=== PATIENT | male | born 1935 | race Caucasian/White ===

== ENCOUNTER 2019-08-12 20:04 | Inpatient (IN) | payer MEDICARE, SELFPAY ==
[~2019-08-12 20:04] MED LIST: Calcium Chloride 1 GM/10 ML Abboject SYRINGE ONE; Potassium Chloride 20 MEQ in Premix Bag 1 BAG IVPB SCH
[2019-08-12 20:28] LABS: Actual Bicarbonate (HCO3a) 16.5 mEq/L (22-28); Analyzer IN Cardio ER; Base Excess (BEa) -10.1 mEq/L (-2.0 to +3.0); Calcium, Ionized 1.01 mmol/L (1.12-1.30); Carboxyhemoglobin (COHb) 0.3 gm% (0.0-3.0); Hemoglobin (Hb) 12.4 g/dL (14.0-18.0); O2 Tension (PaO2) 361.8 mmHg (> 60.0); Potassium - ABG Lab 3.25 mmol/L (3.70-5.30); pH, Arterial 7.24 (7.35-7.45)
[2019-08-12 20:29] LABS: Hemoglobin 12.1 g/dL (14.0-18.0); Mean Corpuscular HGB CONC 33.9 g/dL (32.0-36.0); Mean Corpuscular Volume 85.5 fL (78.0-98.0); Mean Platelet Volume 9.2 fL (7.4-10.4); Platelet Count 214 thou/uL (130-400); RBC Distribution Width 12.4 % (11.5-14.5); Red Blood Cell (RBC) Count 4.16 mill/uL (4.70-6.10); White Blood Cell (WBC) Count 20.2 thou/uL (4.8-10.8)
[2019-08-12 20:29] LABS: Puncture Site LRA
[2019-08-12 20:35] LABS: INR-International Normal Ratio 1.5; PTT 45.1 SEC (22.9-36.1); Prothrombin Time 18.4 SEC (12.0-14.7)
[2019-08-12 20:41] LABS: Band 2 % (5-11); Lymphocytes 10 % (21-51); MDiff Complete? YES; Metamyelocyte 1 % (0-0); Monocytes 9 % (0-10); Neutrophil 77 % (42-75); Platelet Morphology Comment Appears Adequate
[2019-08-12] MEDS ORDERED: fentaNYL Citrate/PF 2,000 MCG in Sodium Chloride 0.9% 60 ML IV SCH (20:44)
[2019-08-12 20:52] LABS: ALT (SGPT) 108 U/L (8-55); AST (SGOT) 102 U/L (5-34); Albumin 3.3 g/dL (3.4-4.8); Alkaline Phosphatase 80 U/L (40-110); Anion Gap 21 mmol/L (10-20); BUN (Urea Nitrogen) 14 mg/dL (8.4-25.7); Bilirubin, Total 0.9 mg/dL (0.2-1.2); CK (CPK) 289 U/L (30-200); Calc. Creatinine Clearance 0 mL/min (70-130); Calcium 7.3 mg/dL (7.8-10.44); Carbon Dioxide 16 mmol/L (23-31); Chloride 101 mmol/L (98-107); Estimated GFR-MDRD 47; Globulin 2.9 g/dL (2.4-3.5); Glucose 366 mg/dL (83-110); Lipase 25 U/L (8-78); Potassium 3.2 mmol/L (3.5-5.1); Protein, Total 6.2 g/dL (5.8-8.1); Sodium 135 mmol/L (136-145)
--- NOTE | 2019-08-12 21:12 | CON ---
DATE OF CONSULTATION: 08/12/2019 REASON FOR CONSULTATION: Rmw-at-zvtrzidm cardiac arrest. HISTORY OF PRESENT ILLNESS: Mr. Kwon is an 84-year-old gentleman, in descent, who called 911 for chest pain earlier today. When EMS arrived, he had agonal breathing, he was very hypotensive and eventually went into PEA arrest and he was coded, eventually intubated and brought into the [facility]. The total length of resuscitation before he had recovery of spontaneous circulation was 45 minutes per EMS report. He has been unresponsive since. In the ER, he had to be placed on Levophed to keep his blood pressure up and a CT of the chest was done to rule out PE, which was negative for PE, but showed a gteyo-ei-gmummupg sized pneumothorax on the right chest, so a chest tube was placed. He remains unresponsive, on no sedation. No sedation was given to intubate either. PAST MEDICAL HISTORY: Unknown. SURGICAL HISTORY: Unknown. SOCIAL HISTORY: is currently driving from [place]. We will have more information once the arrives. OUTPATIENT MEDICATIONS: Unknown. FAMILY HISTORY: Unknown. ALLERGIES: UNKNOWN. REVIEW OF SYSTEMS: Unobtainable as the patient is intubated and unresponsive. PHYSICAL EXAMINATION: VITAL SIGNS: Blood pressure 148/62, heart rate 78, respiratory rate 18, and saturating 98% on 50% FiO2. GENERAL: Sedated, intubated. NECK: Supple. LUNGS: Have coarse breath sounds bilaterally. CARDIOVASCULAR: S1 and S2. No S3 or S4. There is a grade 2/6 systolic murmur at the right upper sternal border. ABDOMEN: Distended with reduced bowel sounds. EXTREMITIES: No edema. SKIN: Warm and dry. LABORATORY DATA: Laboratory work was reviewed from the [facility]. His white count was 14, hemoglobin of 11, hematocrit of 36, and platelet count of 191. Coags were reviewed. ABG was reviewed; his pH was 6.9 with CO2 of 69 and PO2 of 107. Chemistry showed a sodium of 137, potassium was 3.4, chloride of 98, carbon dioxide of 14, anion gap of 28, BUN of 15, creatinine of 1.78, GFR of 37, glucose was 465, calcium was 7.7, AST 76, ALT is 91, and alkaline phosphatase 76. CK-MB was 2.7. Troponin I was initially 0.04. BNP was 548. Albumin was 3.3. EKG initially showed right bundle branch block with about [address]-elevation in V1 and 0.[address]-elevation in V2 and lateral ST depressions. Repeat EKG showed no evidence of ST elevations, but the ST depressions in the lateral leads remained. IMAGING DATA: CT of the thorax showed no evidence of PE. There is a uyccw-kh-iuaicq sized right pneumothorax. There are bilateral pleural effusions and pulmonary infiltrates, presumably due to failure. Pneumonia is in the differential. Right lung is more involved than the left per final report. Chest x-ray showed similar findings. ASSESSMENT: 1. Pxy-jz-ocydjgie cardiac arrest. 2. Pulseless electrical activity arrest. 3. Pulmonary edema on imaging. 4. Prolonged resuscitation, 45 minutes total. 5. Acute hypoxic respiratory insufficiency. 6. Unresponsiveness. 7. Elevated sugars. 8. Elevated LFTs. 9. Elevated creatinine. 10. Metabolic acidosis. PLAN: 1. Currently, his EKG does not look like an acute ST elevation CT. It looks somewhat ischemic with the lateral depressions, certainly not an emergency to take him to the receiver/laborer. He is unstable and requiring high doses of pressors, he was on 35 mcg of Levophed. He received some bicarbonate and this actually made his blood pressure get better and we are able to start weaning off the Levophed. He is also very acidotic. At this time, I would try to stabilize him first. 2. We would trend out troponins. 3. We will consider heart catheterization if there is meaningful neurological recovery or if his troponins begin to rise precipitously. 4. Echocardiogram will be done. Thank you for letting us to participate in the care of your patient. We will follow. 45 minutes of critical care. Job ID: [id number] MARISOL
--- NOTE | 2019-08-12 21:40 | RAD ---
Exam: Chest one view HISTORY:Status post line placement Comparison: 08/12/2019 at 7:15 PM FINDINGS: Lines and tubes: Redemonstration of endotracheal and nasogastric tube. Redemonstration of a right-consuelo ed chest tube. Sidehole appears to be external to the pleural space. Small right-sided pneumothorax. Right-sided central venous catheter with the distal tip projecting over the superior ve na cava. Cardiac silhouette:Upper normal Aorta: Unremarkable Pulmonary vessels: Normal Costophrenic angles: Clear LUNGS: Bilateral right greater than left perihilar interstitial and alveolar opacities. Pneumothorax: Right-sided pneumothorax Osseous abnormalities: None IMPRESSION: Lines and tubes as above. Small right-sided pneumothorax. Results of study discussed with Dr. Davidson 08/12/2019 at 9:39 PM Code CR Transcribed Date/Time: 08/12/2019 9:58 PM
--- NOTE | 2019-08-12 21:56 | CT ---
Exam: Head CT without contrast HISTORY: Cardiac arrest. Resuscitative measures initiated. COMPARISON: none FINDINGS: Hemorrhage: No intraparenchymal hemorrhage or extra-axial hematoma. Brain parenchyma: Cortical baptiste-white matter differentiation is preserved. No mass effect or midline shift. Basilar cisterns are patent.Residual contrast from previous administration for CT angiogram of the chest is noted. No pathologic enhancement of the brain parenchyma. White matter hypodensities due to chronic small vessel ischemic change. Ventricular system: Ventricles and sulci are patent and symmetric. Calvarium: Intact. Sinuses and mastoid air cells: Mild mucosal thickening of the ethmoid air cells IMPRESSION: No acute intracranial process.
[2019-08-12] MEDS ORDERED: Aspirin 325 MG TAB ONE (21:57)
[2019-08-12] MEDS ORDERED: Enoxaparin Sodium 60 MG/0.6 ML SYRINGE ONE ×2 (21:57→22:58)
--- NOTE | 2019-08-12 22:28 | RAD ---
Exam: Chest one view HISTORY:Pneumothorax. Comparison: 08/12/2019 at 9:31 PM FINDINGS: Stable vascular catheter, nasogastric tube and endotracheal tube. Interval change in position of a ri ght-sided chest tube. There is a noted pneumothorax is not evident. Slightly improved aeration of the lung parenchyma. Subcutaneous emphysema in the right hemithorax. IMPRESSION: Interval replacement of a right-sided chest tube. Currently, there does not appear to be a definite p neumothorax on this supine projection. Improved aeration of the lung parenchyma. Transcribed Date/Time: 08/12/2019 10:37 PM
[2019-08-12] MEDS ORDERED: CCU Electrolyte Replacement 1 EACH IVPB SCH (23:29)
[2019-08-12] MEDS ORDERED: Acetaminophen 325 MG Suppository PR PRN (23:29)
[2019-08-12] MEDS ORDERED: Norepinephrine 8 MG in Dextrose 5% in Water 242 ML IVPB PRN (23:29)
[2019-08-12] MEDS ORDERED: Ventilator Sedation Protocol 1 EACH FS SCH (23:30)
[2019-08-12 23:44] LABS: ALT (SGPT) 108 U/L (8-55); AST (SGOT) 129 U/L (5-34); Albumin 3.3 g/dL (3.4-4.8); Alkaline Phosphatase 82 U/L (40-110); Anion Gap 25 mmol/L (10-20); BUN (Urea Nitrogen) 16 mg/dL (8.4-25.7); Bilirubin, Total 0.8 mg/dL (0.2-1.2); Calc. Creatinine Clearance 0 mL/min (70-130); Calcium 7.6 mg/dL (7.8-10.44); Carbon Dioxide 16 mmol/L (23-31); Chloride 101 mmol/L (98-107); Estimated GFR-MDRD 43; Glucose 419 mg/dL (83-110); Potassium 3.6 mmol/L (3.5-5.1); Protein, Total 6.3 g/dL (5.8-8.1); Sodium 138 mmol/L (136-145)
[2019-08-12] MEDS ORDERED: Lactated Ringer's 1,000 ML IV SCH (23:45)
[2019-08-12] MEDS ORDERED: Dextrose 5% in Water 1,000 ML IV PRN (23:57)
[2019-08-12] MEDS ORDERED: Dextrose 50% Abboject 50 ML SYRINGE SLOW IVP PRN (23:57)
[2019-08-13] MEDS ORDERED: Pantoprazole 40 MG VIAL IVP SCH (00:15)
[2019-08-13] MEDS ORDERED: Morphine 2 MG/ML SYRINGE SLOW IVP PRN (00:16)
[2019-08-13] MEDS ORDERED: fentaNYL Citrate/PF 2,000 MCG in Sodium Chloride 0.9% 60 ML IV SCH (00:16)
[2019-08-13] MEDS ORDERED: Propofol 1,000 MG/100 ML VIAL IV PRN (00:16)
[2019-08-13] MEDS ORDERED: DISCONTINUE PREVIOUS NARCOTIC PAIN MEDICATIONS AND BENZODIAZEPINES FS SCH (00:16)
[2019-08-13] MEDS ORDERED: Fentanyl BOLUS 250 ML IVPB PRN (00:16)
[2019-08-13] MEDS ORDERED: Lorazepam 2 MG/ML VIAL SLOW IVP PRN (00:16)
[2019-08-13] MEDS ORDERED: Propofol BOLUS 1,000 MG/100 ML VIAL IV PRN (00:16)
[2019-08-13] MEDS ORDERED: CCU ELECTROLYTE REPLACEMENT PROTOCOL FS PRN (00:17)
[2019-08-13] MEDS ORDERED: PHOS-NAK 1 PKT PACK PO PRN ×2 (00:17)
[2019-08-13] MEDS ORDERED: Potassium Chloride 40 MEQ in Sodium Chloride 0.9% 250 ML 250 ML IVPB PRN (00:17)
[2019-08-13] MEDS ORDERED: Magnesium 2 GM/50 ML 2 GM in Premix Bag 1 BAG IVPB PRN (00:17)
[2019-08-13] MEDS ORDERED: Potassium Phosphate 12 MMOL in Sodium Chloride 0.9% 250 ML 250 ML IV PRN (00:17)
[2019-08-13] MEDS ORDERED: Potassium Phosphate 9 MMOL in Sodium Chloride 0.9% 100 ML IVPB PRN (00:17)
[2019-08-13] MEDS ORDERED: Magnesium Oxide 400 MG TAB PO PRN ×2 (00:17)
[2019-08-13] MEDS ORDERED: Potassium Chloride 20 MEQ TAB PO PRN (00:17)
[2019-08-13] MEDS ORDERED: Potassium Phosphate 15 MMOL in Sodium Chloride 0.9% 250 ML 250 ML IV PRN (00:17)
[2019-08-13] MEDS ORDERED: Sterile Water 10 ML VIAL IVP PRN (00:28)
[2019-08-13] MEDS ORDERED: Sodium Chloride 0.9% 1,000 ML IV SCH (00:30)
[2019-08-13] MEDS ORDERED: Acetaminophen 1,000 MG in Premix Bag 1 BAG IVPB PRN (00:30)
[2019-08-13] MEDS ORDERED: Vecuronium 10 MG VIAL IV PRN (00:30)
[2019-08-13] MEDS ORDERED: Ondansetron ODT 4 MG TAB SL PRN (00:33)
[2019-08-13] MEDS ORDERED: Ondansetron PF 4 MG/2 ML Vial IVP PRN (00:33)
[2019-08-13] MEDS ORDERED: Sodium Bicarbonate 75 MEQ in Sodium Chloride 0.45% 1,000 ML IV SCH (01:00)
[2019-08-13 01:10] LABS: Phosphorus 4.7 mg/dL (2.3-4.7)
[2019-08-13 01:15] VITALS: BMI 22.6
[2019-08-13 01:37] LABS: Lactic Acid 15.2 mmol/L (0.5-2.2)
[2019-08-13] MEDS: cefTRIAXone\\ROCEPHIN 1 GM in Sodium Chloride 0.9% 100 ML IVPB SCH (02:00)
[2019-08-13] MEDS ORDERED: Heparin 25,000 units/D5W 500 ML ONE (08:48)
[2019-08-13] MEDS ORDERED: Enoxaparin Sodium 40 MG/0.4 ML SYRINGE SC SCH (09:00)
--- NOTE | 2019-08-13 11:41 | HP ---
CHIEF COMPLAINT: Uen-ed-gtcawfhb cardiac arrest. HISTORY OF PRESENT ILLNESS: The patient is an 84-year-old male, who was brought into the hospital with cardiac arrest. The patient's is at the bedside, who stated that the patient is just returned from [facility] about 2 weeks ago. 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 She is unclear if he had any chest pain or not. The patient's did state that he has been fighting with some congestion for the past couple of days and using daey-alj-dmvjyfc medications. At this time, the patient called 911; however, the patient then I believe lost consciousness, and when the EMS arrived, his pulse was very weak, and at this time, CPR was initiated. Per notes, the patient was resuscitated for about 20 to 30 minutes; however, it was also mentioned possible 45 minutes, and he had recovery of spontaneous circulation. The patient was then brought into the ER. Initial thoughts were possible cardiac arrest secondary to [place]. The patient's underlying rhythm was a PEA arrest per notes. He was seen by Cardiology. He did have some ST depressions. His troponins were mildly elevated. He then was found to have a small right-sided pneumothorax, for which a chest tube was inserted. He did have a CTA, which did not indicate any acute PE. He was started on Levophed, was hydrated and was admitted into the hospital. PAST MEDICAL HISTORY: Per , he has a history of hypertension, hypercholesterolemia, and benign prostate hyperplasia. PAST SURGICAL HISTORY: The denies. SOCIAL HISTORY: He does not smoke, does not drink, does not use any drugs. He is a full code. He lives with . FAMILY HISTORY: Unknown per . ALLERGIES: UNKNOWN. REVIEW OF SYSTEMS: Unable to obtain, the patient is intubated. PHYSICAL EXAMINATION: VITAL SIGNS: Temperature 98.8, respirations 18, heart rate 78, blood pressure 120/60. He is 98% on FiO2 of 35%. GENERAL: He is sedated and intubated. LUNGS: Lungs have some mild coarse breathing sounds bilaterally. CV: S1 and S2 present. He does have a 2/6 systolic murmur. ABDOMEN: Soft. Bowel sounds are present x2. EXTREMITIES: No edema. Pedal pulses are present x2. NEUROVASCULAR: Unable to obtain as the patient is sedated; however, his pupils are reactive. LABORATORY RESULTS: His white count was found to be 20,000 and his creatinine was I believe 1.78. His anion gap was 25 and his bicarb was 16. Potassium was 3.4. His BNP was 548. CK-MB was 2.7. Troponin initially was 0.04. His EKG indicated about [address]-elevation in V1 and 0.[address]-elevation in V2 and some depressions. He did have a CTA, which was negative for PE. There was bwonk-jx-hmekkh sized pneumothorax that was also noted. His CT brain was negative for any bleeds. ASSESSMENT AND PLAN: The patient is an 84-year-old male, who is pretty healthy, presents to the hospital with cardiac arrest. 1. Acute hypoxic respiratory failure. The patient currently is intubated. The patient underwent a pulseless electrical activity arrest. Unclear etiology at this moment, possible cardiac versus lung etiology. I will start him on broad-spectrum antibiotics. Also, he will be starting the cooling process. Cardiology has evaluated this patient. No need for urgent or emergent cardiac catheterization per notes. Also, we did a bedside echocardiogram, which did not indicate any tamponade. 2. Pulseless electric activity, unclear, possibly secondary to maybe hypoxia, it is unclear, the patient did complain of some congestion. We will also check a viral swab on this patient. 3. Elevated LFTs. This is probably secondary to his hypotension. We will continue to monitor. 4. Acute kidney injury. This is probably again secondary to his hypotension. I am hoping this is transient. We will monitor intake and output. 5. Anion gap metabolic acidosis. We will check a drug screen. We will start the patient on bicarb drip. If his bicarb drops, we will consult Nephrology. I have already spoken with them and continue to monitor the patient. 6. Deep venous thrombosis prophylaxis. We will put the patient on SCDs. Job ID: [id number]
[2019-08-13] MEDS: Sodium Bicarbonate 150 MEQ in Dextrose 5% in Water 1,000 ML IV SCH ×2 (13:00→16:52)
--- NOTE | 2019-08-13 14:08 | CON ---
DATE OF CONSULTATION: HISTORY OF PRESENT ILLNESS: Gildardo Kwon is an 84-year-old gentleman, who was admitted last night after he presented to the ER complaining of chest pain. 911 was called and lives in [place]. CPR en route, received 5 rounds of epi, 3 rounds of bicarb as 45-minute downtime. X-ray in [place] showed a right-sided pneumothorax. According to the ER doctor, he is intubated and started on Levophed. A small bore chest tube was placed. On arrival to [facility] ER, I was notified about the patient's issues appear to be a cardiac problem clearly. Cardiology was consulted. They were not planning to do any immediate intervention. He was transferred to the ICU and placed on a cooling blanket. I was not notified thereafter any of the events. PHYSICAL EXAMINATION: GENERAL/VITAL SIGNS this morning, he is on a cooling blanket. Pupils are equal. He is on Levophed with a blood pressure of 120/80, pulse 80, respiratory rate 20, temperature 98. CHEST: Decreased breath sounds without any wheezing. CARDIAC: Normal S1, S2. No gallops. ABDOMEN: No masses. His is apparently at the bedside. PAST MEDICAL HISTORY: Pertinent for hypertension, hyperlipidemia. HOME MEDICATIONS: Apparently given last night, unknown. ALLERGIES: UNKNOWN. 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 LABORATORY DATA: Shows blood sugar 196, creatinine 1.56, AST 128. BNP was 273. Chest x-ray was clear. A small bore chest tube in place. CT brain performed. No acute process was seen. His lactic acid was elevated. IMPRESSION: 1. Status post cardiac arrest with an initial event appears to be pulseless electrical activity, possibly ventricular fibrillation, ventricular tachycardia. 2. He is on hypothermia protocol. 3. Hypertension. 4. Azotemia. PLAN: We will continue supportive care until his hypothermia protocol has been withheld. We will discuss with family as they arrive of ongoing issues. Clearly concern is that he has sustained a hypoxic injury. We will make a decision once we were able to un-cool him. This is a 45-minute critical care time. Job ID: [id number]
--- NOTE | 2019-08-13 15:01 | RAD ---
CHEST 1 VIEW: COMPARISON: Prior day's study. HISTORY: Intubation. Respiratory distress. FINDINGS: Heart size and mediastinum are within normal limits. Endotracheal and NG tubes and right chest tube are again demonstrated. I do not see any definite pneumothorax. The overall appearance of the chest is stable. IMPRESSION: Stable exam. POS: [facility]
--- NOTE | 2019-08-13 15:37 | PDOC.HOSPP ---
- Subjective Encounter Date: 08/13/19 Encounter Time: 15:35 Subjective: intubated, unresponsive - Objective Vital Signs & Weight: Vital Signs (12 hours) Pulse BP 08/13/19 15:19 47 L 133/70 Weight Weight 128 lb 1.417 oz Most Recent Monitor Data Heart Rate from ECG 85 NIBP 138/74 NIBP BP-Mean 95 Respiration from ECG 42 SpO2 100 I&O: 08/12/19 08/13/19 08/14/19 06:59 06:59 06:59 Output Total 352 Balance -352 Result Diagrams: 08/12/19 20:17 08/12/19 23:06 Additional Labs: Accuchecks 08/13/19 08/13/19 12:08 08:05 POC Glucose 196 H 372 H Hospitalist ROS - Medication Medications: Active Medications Generic Name Dose Route Start Last Admin Trade Name Freq PRN Reason Stop Dose Admin Ceftriaxone Sodium 1 gm/ 100 mls @ 200 mls/hr 08/12/19 23:59 08/13/19 02:00 Sodium Chloride IVPB 100 mls Q24HR ELEANOR Administration Norepinephrine Bitartrate 8 mg 250 mls @ 0 mls/hr 08/12/19 23:29 08/13/19 01: 04 / Dextrose/Water IVPB 250 mls PRN PRN Administration To maintain MAP > 65 Protocol Titrate Propofol 1,000 mg 08/13/19 00:16 08/13/19 02:00 Diprivan IV 09/12/19 00:16 1,000 mg INF PRN Administration TO ACHIEVE GOAL RASS Protocol - Exam Neck: no JVD Heart: RRR, no murmur Heart - other findings: bradycardia Respiratory - other findings: Bilat BS, scattered rales. R chest franca Gastrointestinal: soft, non-tender, diminished bowl sounds Extremities: no edema Hosp A/P - Plan out of hospital arrest prolonged CPR R pneumothoraxpulmonary edema hypotension hypothermia plan1. vent support pressor support hypotherrmia protocol antibx pending cultures serial exams, lab
--- NOTE | 2019-08-13 15:38 | PDOC.PALCO ---
Palliative Care Consult - Consult Details Requesting Physician: Dr Hodges Reason for Consult: advance directives assistance, family support Family Members Present: None, daughter flying in from out of the country - Pertinent HPI 84 year old male who lives in [facility] and was at home and had a sudden onset of chest pain. His was not home, he called her and she advised him to call 911. EMS called and report that when the arrived he was non responsive and CPR/intubation was preformed en route. Eventual admission to CCU with cardiology consult. Patient non responsive. - Pertinent PMH HTN, HDL - Social History Smoking Status: Never smoker Smoking: no tobacco exposure Drug Use History: none Living Situation: independent, - Medications MAR Reviewed: Yes - Allergies Allergies/Adverse Reactions: Allergies Allergy/AdvReac Type Severity Reaction Status Date / Time No Allergy Information Allergy Unverified 08/12/19 20:44 Available - Subjective mechanical ventilation, unable to perform ROS. - ROS Non Response: due to endotracheal tube, due to mental status - Objective Vital Signs: Vital Signs - Most Recent Temp Pulse Resp BP Pulse Ox 92.3 F L 47 L 27 H 133/70 08/13/19 01:00 08/13/19 15:19 08/13/19 01:36 08/13/19 15:19 Palliative Performance Scale: 20 - Physical Exam Constitutional: encephalitic, ill appearing HEENT: moist MMs Deviation from normal: mechanical ventilation Cardiovascular: diminished peripheral pulses Deviation from normal: murmur Genitourinary: toledo catheter Musculoskeletal: no clubbing, pulses present Deviation from normal: sedated Deviation from normal: sedated - Problem List (1) Palliative care encounter Code(s): Z51.5 - ENCOUNTER FOR PALLIATIVE CARE Current Visit: Yes Status: Acute (2) Respiratory failure requiring intubation Code(s): J96.90 - RESPIRATORY FAILURE, UNSP, UNSP W HYPOXIA OR HYPERCAPNIA Current Visit: Yes Status: Acute - Plan/Recommendations Plan: Initiated contact for Palliative Care. Patient daughter en route from out of the country, his is not the biological mother of the daughter. Will support family as the hypothermia protocol has been carried out and continued conversations with hospitalist and lunchroom supervisor regarding plans for care are made. [40] minutes spent on this encounter with >50% of the time in counseling and coordination of care. Thank you for this very appropriate consult.
[2019-08-13 15:44] LABS: INR-International Normal Ratio 1.8; Prothrombin Time 20.4 SEC (12.0-14.7)
[2019-08-13 15:45] LABS: Hemoglobin 11.2 g/dL (14.0-18.0); Mean Corpuscular HGB CONC 34.3 g/dL (32.0-36.0); Mean Corpuscular Hemoglobin 28.8 pg (27.0-31.0); Mean Platelet Volume 9.7 fL (7.4-10.4); Platelet Count 162 thou/uL (130-400); RBC Distribution Width 12.5 % (11.5-14.5); Red Blood Cell (RBC) Count 3.88 mill/uL (4.70-6.10); White Blood Cell (WBC) Count 10.2 thou/uL (4.8-10.8)
[2019-08-13 15:49] LABS: ALT (SGPT) 98 U/L (8-55); AST (SGOT) 158 U/L (5-34); Albumin 3.1 g/dL (3.4-4.8); Alkaline Phosphatase 67 U/L (40-110); Anion Gap 27 mmol/L (10-20); BUN (Urea Nitrogen) 17 mg/dL (8.4-25.7); Bilirubin, Total 0.6 mg/dL (0.2-1.2); Calc. Creatinine Clearance 33 mL/min (70-130); Calcium 7.5 mg/dL (7.8-10.44); Carbon Dioxide 14 mmol/L (23-31); Chloride 102 mmol/L (98-107); Estimated GFR-MDRD 49; Globulin 2.7 g/dL (2.4-3.5); Glucose 347 mg/dL (83-110); Magnesium 2.1 mg/dL (1.6-2.6); Potassium 3.5 mmol/L (3.5-5.1); Protein, Total 5.8 g/dL (5.8-8.1); Sodium 139 mmol/L (136-145)
[2019-08-13 15:58] LABS: Troponin I 3.367 ng/mL (< 0.028)
[2019-08-13 16:01] LABS: PTT Greater than 250.0 SEC (22.9-36.1)
[2019-08-13 16:09] LABS: Band 12 % (5-11); Lymphocytes 13 % (21-51); MDiff Complete? YES; Monocytes 3 % (0-10); Neutrophil 72 % (42-75); RBC Morphology Normal
[2019-08-13 16:10] LABS: Anion Gap 16 mmol/L (10-20); BUN (Urea Nitrogen) 15 mg/dL (8.4-25.7); Calc. Creatinine Clearance 48 mL/min (70-130); Calcium 7.7 mg/dL (7.8-10.44); Carbon Dioxide 23 mmol/L (23-31); Chloride 104 mmol/L (98-107); Estimated GFR-MDRD 73; Glucose 128 mg/dL (83-110); Magnesium 2.1 mg/dL (1.6-2.6); Phosphorus 1.8 mg/dL (2.3-4.7); Potassium 2.9 mmol/L (3.5-5.1); Sodium 140 mmol/L (136-145); Troponin I 5.206 ng/mL (< 0.028)
[2019-08-13 16:31] LABS: Phosphorus 3.6 mg/dL (2.3-4.7)
[2019-08-13] MEDS: Potassium Chloride 40 MEQ in Premix Bag 1 BAG IVPB PRN (16:42)
[2019-08-13 16:44] LABS: Lactic Acid 14.8 mmol/L (0.5-2.2)
[2019-08-13] MEDS: Azithromycin 500 MG in Sodium Chloride 0.9% 250 ML 250 ML IVPB SCH (16:50)
[2019-08-13] MEDS: Aspirin 300 MG Suppository PR SCH (16:51)
[2019-08-13] MEDS: Pantoprazole 40 MG VIAL IVP SCH ×2 (16:51→21:22)
--- NOTE | 2019-08-13 17:04 | CON ---
DATE OF CONSULTATION: 08/13/2019 SERVICE: Nephrology. REASON FOR CONSULTATION: Renal insufficiency. HISTORY OF PRESENT ILLNESS: An 84-year-old male with known history of hypertension, hyperlipidemia, and BPH, admitted after out of hospital cardiac arrest. The patient reportedly returned from [facility] two weeks ago and has been having some upper respiratory symptoms and subsequently yesterday complained of some shortness of breath and ill feeling, following which 911 was called. It was reported that the patient had a thready pulse on arrival of the EMS and hence was started on CPR, which lasted about 20 to 30 minutes before return of spontaneous circulation. In the ER, the patient was also found to have right-sided pneumothorax requiring chest tube placement. He also had a CT angio to rule out PE as the underlying rhythm during the cardiac arrest was PEA arrest. The patient was noted to be hypotensive subsequently and was treated with IV fluid, Levophed, and was subsequently started on cooling protocol. Note that the above history was obtained from review of medical record as the patient currently is intubated and there is no relative at the bedside. PAST MEDICAL HISTORY: 1. Hypertension. 2. Hyperlipidemia. 3. BPH. PAST SURGICAL HISTORY: None. FAMILY HISTORY: Unknown due to at present, he is unresponsive at this time. 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 There is no history of smoking, alcohol, or recreational drug use. ALLERGIES: UNKNOWN. MEDICATIONS: Prior to hospital medications, unknown. REVIEW OF SYSTEMS: Could not be performed due to the patient's condition. PHYSICAL EXAMINATION: VITAL SIGNS: Current vitals showed heart rate of 85, temperature of 92.3, respiratory rate of 42, SpO2 of 100 on 25 FiO2, and blood pressure is 138/74. GENERAL: Sedated male patient in no obvious distress. Afebrile. The patient is actually hypothermic as he is undergoing cooling treatments (therapeutic hypothermia). HEENT: Normocephalic and atraumatic. ET tube and nasogastric tube are in place. NECK: No obvious masses or JVD appreciated. CARDIOVASCULAR: Regular rhythm and rate with normal. heart sounds one and two. RESPIRATORY: Fair air entry bilaterally. Ventilator transmitted breath sounds. GI: Soft, nondistended with hypoactive bowel sounds. UROGENITAL: Chaudhry catheter is in place, draining some urine. MUSCULOSKELETAL: Right chest tube noted. No obvious edema appreciated. Extremities are grossly normal with no obvious trauma or edema or edema. 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 DIAGNOSTIC DATA: CBC today showed WBC count of 10.2, hemoglobin of 11.2, and platelet of 162. On presentation on August 12, 2019, WBC count was 20.2, hemoglobin was 12.1, and platelet was 214. Coagulation panel showed PT 20.4 and INR 1.8. BMP today showed sodium 139, potassium 3.5, chloride 102, CO2 of 14, BUN 17, creatinine 1.4, glucose 347, calcium 7.51, total bilirubin 0.6, AST 158, ALT 98, alkaline phosphatase 67, total protein 5.8, albumin 3.1, and globulin 2.7. Lactic acid was 15.2. Initial troponin was 0.260. CT scan of the brain done on presentation showed no acute intracranial process. Initial chest x-ray done on presentation showed bilateral air I bilateral left perihilar interstitial and alveolar opacities, more on the right with right-sided pneumothorax. ASSESSMENT: 1. Renal insufficiency. Acute is unclear. On presentation, creatinine was 1.78 and has improved to a devan of 1.40 this morning. The prior history of chronic kidney disease is unknown at this time. It is possible this acute kidney injury related to circulatory shock and hypoperfusion. 2. Metabolic acidosis with lactic acidosis: Most likely due to circulatory shock. Underlining infective process may be contributory given the patient was having upper respiratory symptoms and congestion prior to pulseless electrical activity arrest. 3. Circulatory shock: Improved. The patient is currently off Levophed. 4. Out of hospital pulseless electrical activity arrest. Etiology is unclear. May be related to respiratory symptoms of viral pneumonic infection. 5. History of hypertension. 6. History of hyperlipidemia. 7. Melena. 8. Acute hypoxic respiratory failure: Status post intubation. PLAN: The patient currently is undergoing cooling (therapeutic hypothermia). We will continue sodium bicarbonate infusion for now and monitor urine output and intake. Hemodynamic support and ventilator support as needed to continue. Further treatment will depend largely on neurologic outcome. We will repeat renal function test in the morning. Other treatment as per Cardiology and septic cleaner. We will follow along with you. The patient remained critically ill with guarded prognosis. Job ID: [id number]
[2019-08-13] MEDS ORDERED: Propofol 1,000 MG/100 ML VIAL IV ONE (17:14)
[2019-08-13] MEDS ORDERED: DOPamine 400 MG/D5W 250 ML 250 ML ONE (17:15)
[2019-08-13] MEDS ORDERED: Atropine Sulfate 1 mg/10 ml Syringe ONE ×2 (17:15)
[2019-08-13 17:22] LABS: Actual Bicarbonate (HCO3a) 19.6 mEq/L (22-28); Base Excess (BEa) -1.4 mEq/L (-2.0 to +3.0); Calcium, Ionized 0.95 mmol/L (1.12-1.30); Carboxyhemoglobin (COHb) 0.5 gm% (0.0-3.0); Hemoglobin (Hb) 11.1 g/dL (14.0-18.0); O2 Tension (PaO2) 64.4 mmHg (> 60.0)
[2019-08-13 17:24] LABS: CO2 Tension 23.1 mmHg (35.0-45.0); Puncture Site RR; pH, Arterial 7.55 (7.35-7.45)
[2019-08-13 17:25] LABS: ALV-art Gradient 106.365 (0-20)
[2019-08-13] MEDS ORDERED: EPINEPHrine 1 MG/ML AMP ONE (17:26)
[2019-08-13 17:42] LABS: Hemoglobin 10.9 g/dL (14.0-18.0); Mean Corpuscular Volume 87.2 fL (78.0-98.0); Red Blood Cell (RBC) Count 3.74 mill/uL (4.70-6.10); White Blood Cell (WBC) Count 17.2 thou/uL (4.8-10.8)
[2019-08-13 17:43] LABS: Mean Corpuscular HGB CONC 33.5 g/dL (32.0-36.0); Mean Corpuscular Hemoglobin 29.2 pg (27.0-31.0); Mean Platelet Volume 9.8 fL (7.4-10.4); Platelet Count 206 thou/uL (130-400); RBC Distribution Width 12.5 % (11.5-14.5)
[2019-08-13 17:44] LABS: Band 13 % (5-11); Lymphocytes 1 % (21-51); MDiff Complete? YES; Monocytes 3 % (0-10); Neutrophil 83 % (42-75)
[2019-08-13] MEDS ORDERED: DOPamine 400 MG/D5W 250 ML 250 ML IVPB SCH (18:15)
--- NOTE | 2019-08-13 19:11 | PRG ---
DATE OF SERVICE: 08/13/2019 SUBJECTIVE: Mr. Kwon apparently developed significant bradycardia this afternoon, and I have to be in the critical care unit. I responded at the bedside. OBJECTIVE: VITAL SIGNS: His heart rate was in the 20s. HEENT: He had blown pupils. GENERAL: He was unresponsive. LUNGS: Clear. HEART: Regular rhythm. Bradycardic. He responded to atropine 0.5 mg. ABDOMEN: Soft. Dopamine was started, and he has a sinus rhythm with heart rate in the 60s. LABORATORY DATA: White count is 10.2 today, hemoglobin is 11.2. Electrolytes are unremarkable except for potassium of 2.9. His heparin had to be stopped because of bleeding out of his chest tube. IMPRESSION: Status post prolonged cardiopulmonary resuscitation with a pneumothorax secondary to rib fractures with chest tube placement. I suspect he is approaching brain , and his bradycardia probably is a result of that. We will continue supportive care for now. He will need to be neurologically re-assessed in the morning. CRITICAL CARE TIME: 30 minutes. Job ID: [id number]
--- NOTE | 2019-08-13 19:30 | CT ---
Exam: Head CT without contrast HISTORY: Change in neuro status. Patient administered a large dose of heparin COMPARISON: none FINDINGS: Hemorrhage: No intraparenchymal hemorrhage or extra-axial hematoma. Brain parenchyma: There appears to be loss of cortical baptiste-white matter differentiation with sulcal effacement suggesting diffuse cerebral edema. Ventricular system: Interval compression of the ventricular system, likely due to diffuse cerebral ed dagoberto. Calvarium: Intact. Sinuses and mastoid air cells: Partial opacification of the visualized paranasal sinuses IMPRESSION: Diffuse cerebral edema. Results study discussed with Jessika patient's nurse 08/13/2019 at 7:30 PM Code CR Transcribed Date/Time: 08/13/2019 8:20 PM
--- NOTE | 2019-08-13 20:10 | RAD ---
EXAM: ONE VIEW CHEST: 08/13/19 COMPARISON: 08/12/19 HISTORY: Respiratory distress. Ventilated patient. FINDINGS: Exam is on the taken list and submitted for official interpretation 08/13/19 at 8:07 p.m. FINDINGS: Stable lines and tubes. Stable opacification of the lung parenchyma. IMPRESSION: No significant interval change. POS: OFF
[2019-08-13] MEDS ORDERED: FLU VACC TS2019-20(65YR UP)/PF 180 MCG/0.5 ML SYRINGE IM ONE (21:00)
[2019-08-13] MEDS ORDERED: Prevnar 13-Val Conj/PF 0.5 ML SYRINGE IM ONE (21:00)
[2019-08-13] MEDS: HumaLOG 300 UNITS/3 ML VIAL SC PRN (21:05)
[2019-08-13] MEDS: Sodium Chloride 0.9% (PF) 10 ML VIAL FS PRN (21:23)
[2019-08-13 22:01] LABS: #Lymphocytes 1.1 thou/uL (1.20-3.40); #Monocytes 0.4 thou/uL (0.11-0.59); #Neutrophils 9.1 thou/uL (1.40-6.50); %Basophils 0.1 % (0.0-1.0); %Eosinophils 0.1 % (0.0-10.0); %Monocytes 3.7 % (0.0-10.0); %Neutrophils 86.2 % (42.0-75.0); Hemoglobin 9.7 g/dL (14.0-18.0); Mean Corpuscular HGB CONC 33.6 g/dL (32.0-36.0); Mean Corpuscular Hemoglobin 28.3 pg (27.0-31.0); Mean Corpuscular Volume 84.3 fL (78.0-98.0); Mean Platelet Volume 9.7 fL (7.4-10.4); Platelet Count 167 thou/uL (130-400); RBC Distribution Width 12.4 % (11.5-14.5); White Blood Cell (WBC) Count 10.5 thou/uL (4.8-10.8)
[2019-08-13 22:05] LABS: INR-International Normal Ratio 1.6
[2019-08-13 22:06] LABS: PTT 96.3 SEC (22.9-36.1)
[2019-08-13 22:13] LABS: ALT (SGPT) 78 U/L (8-55); AST (SGOT) 189 U/L (5-34); Bilirubin, Total 0.6 mg/dL (0.2-1.2)
[2019-08-13 22:14] LABS: Anion Gap 14 mmol/L (10-20); BUN (Urea Nitrogen) 16 mg/dL (8.4-25.7); Calc. Creatinine Clearance 47 mL/min (70-130); Calcium 7.1 mg/dL (7.8-10.44); Carbon Dioxide 24 mmol/L (23-31); Chloride 104 mmol/L (98-107); Estimated GFR-MDRD 72; Glucose 179 mg/dL (83-110); Magnesium 1.9 mg/dL (1.6-2.6); Phosphorus 2.1 mg/dL (2.3-4.7); Sodium 139 mmol/L (136-145)
[2019-08-13 22:17] LABS: Critical Call Chem Troponin I RESULT DECREASING
[2019-08-13 22:20] LABS: Potassium 2.8 mmol/L (3.5-5.1)
[2019-08-13 22:31] LABS: Bilirubin Negative (Negative); Blood, Urine Large (Negative); Glucose, Urine (Dipstick) Negative (Negative); Leukocyte Small (Negative); Nitrite Negative (Negative); Protein, Urine (Dipstick) 100 mg/dL (Neg-Trace); Urobilinogen 0.2 mg/dL (Less than 2)
[2019-08-13 22:38] LABS: Clarity Hazy (Clear)
[2019-08-13 22:39] LABS: Amphetamine Not Detected (NotDetected); Barbiturates Screen Not Detected (NotDetected); Benzodiazepine Screen Detected (NotDetected); Cocaine Metabolite Screen Not Detected (NotDetected); Medtox Control Line Valid? VALID (VALID); Medtox Reader # READER 4; Methadone Not Detected (NotDetected); Methamphetamine Not Detected (NotDetected); Opiate Screen Not Detected (NotDetected); Oxycodone Screen Not Detected (NotDetected); Phencyclidine (PCP) Not Detected (NotDetected); THC/Cannabinoid Screen Not Detected (NotDetected); Tricyclic Screen Not Detected (NotDetected)
[2019-08-13 22:43] LABS: RBC/HPF Greater than 50 HPF (0-3)
[2019-08-13 22:44] LABS: Bacteria/HPF Rare-Few HPF (None Seen); Squamous Epithelial 0-3 HPF (0-3)
[2019-08-13 22:45] LABS: Urine Culture Reflex Yes Yes
[2019-08-14] MEDS: cefTRIAXone\\ROCEPHIN 1 GM in Sodium Chloride 0.9% 100 ML IVPB SCH (00:04)
[2019-08-14] MEDS: Azithromycin 500 MG in Sodium Chloride 0.9% 250 ML 250 ML IVPB SCH (00:04)
[2019-08-14] MEDS: HumaLOG 300 UNITS/3 ML VIAL SC PRN ×2 (02:00→05:03)
[2019-08-14] MEDS: Sodium Bicarbonate 150 MEQ in Dextrose 5% in Water 1,000 ML IV SCH (05:33)
[2019-08-14 06:47] LABS: #Lymphocytes 0.9 thou/uL (1.20-3.40); #Monocytes 0.4 thou/uL (0.11-0.59); #Neutrophils 7.3 thou/uL (1.40-6.50); %Basophils 0.1 % (0.0-1.0); %Lymphocytes 10.1 % (21.0-51.0); %Monocytes 4.2 % (0.0-10.0); %Neutrophils 85.6 % (42.0-75.0); Hemoglobin 8.9 g/dL (14.0-18.0); Mean Corpuscular HGB CONC 33.2 g/dL (32.0-36.0); Mean Corpuscular Hemoglobin 28.2 pg (27.0-31.0); Mean Corpuscular Volume 84.7 fL (78.0-98.0); Mean Platelet Volume 10.2 fL (7.4-10.4); Platelet Count 171 thou/uL (130-400); RBC Distribution Width 12.6 % (11.5-14.5); Red Blood Cell (RBC) Count 3.17 mill/uL (4.70-6.10); White Blood Cell (WBC) Count 8.6 thou/uL (4.8-10.8)
[2019-08-14 07:06] LABS: ALT (SGPT) 66 U/L (8-55); AST (SGOT) 134 U/L (5-34); Albumin 2.6 g/dL (3.4-4.8); Alkaline Phosphatase 58 U/L (40-110); Anion Gap 13 mmol/L (10-20); BUN (Urea Nitrogen) 16 mg/dL (8.4-25.7); Bilirubin, Total 0.4 mg/dL (0.2-1.2); Calc. Creatinine Clearance 39 mL/min (70-130); Carbon Dioxide 27 mmol/L (23-31); Chloride 109 mmol/L (98-107); Estimated GFR-MDRD 60; Globulin 2.6 g/dL (2.4-3.5); Glucose 161 mg/dL (83-110); Potassium 3.5 mmol/L (3.5-5.1); Protein, Total 5.2 g/dL (5.8-8.1); Sodium 145 mmol/L (136-145)
[2019-08-14 07:20] LABS: Actual Bicarbonate (HCO3a) 25.6 mEq/L (22-28); Base Excess (BEa) 4.9 mEq/L (-2.0 to +3.0); Calcium, Ionized 0.92 mmol/L (1.12-1.30); Carboxyhemoglobin (COHb) 1.1 gm% (0.0-3.0); Hemoglobin (Hb) 9.3 g/dL (14.0-18.0); O2 Tension (PaO2) 63.4 mmHg (> 60.0); Potassium - ABG Lab 3.28 mmol/L (3.70-5.30)
[2019-08-14] MEDS: Potassium Chloride 40 MEQ in Premix Bag 1 BAG IVPB PRN (08:13)
[2019-08-14] MEDS: Pantoprazole 40 MG VIAL IVP SCH ×2 (08:13→22:03)
[2019-08-14] MEDS: Aspirin 300 MG Suppository PR SCH (08:14)
--- NOTE | 2019-08-14 08:15 | RAD ---
SINGLE VIEW OF THE CHEST: COMPARISON: 08/13/2019. HISTORY: Respiratory failure. Ventilated patient. FINDINGS: A single view of the chest shows a normal-size cardiomediastinal silhouette. The lines and tubes are unchanged in position. Airspace opacity is seen in the right lung which may represent pulmonary con tusion or infiltrate adjacent to the chest tube. There is a small right-sided pneumothorax. There i s a small left pleural effusion. IMPRESSION: 1. Right-sided chest tube with possible contusion or infiltrate in the right lung. 2. Small right pneumothorax. 3. Small left pleural effusion. CODE T
[2019-08-14 08:19] LABS: Puncture Site LRA; pH, Arterial 7.63 (7.35-7.45)
[2019-08-14] MEDS ORDERED: DC Sedation Protocol FS ONE (08:24)
[2019-08-14] MEDS: Sodium Chloride 0.9% 1,000 ML IV SCH ×2 (08:27→15:14)
--- NOTE | 2019-08-14 08:53 | PRG ---
DATE OF SERVICE: 08/14/2019 SUBJECTIVE: Gildardo Kwon is an 84-year-old gentleman, intubated on the vent, off all sedation, off the hypothermia protocol. He is status post cardiac arrest. OBJECTIVE: VITAL SIGNS: His pulse is 84, blood pressure is 109/54, saturations 93%, respiratory rate 10. HEENT: Pupils are dilated at about 4 mm, unresponsive neurologically. CHEST: Decreased breath sounds, no wheezing. CARDIAC: Normal S1, S2. No gallops. ABDOMEN: No masses. LABORATORY DATA: X-ray shows right-sided pneumothorax, otherwise no acute infiltrates. White count 8000, H and H , platelet count 171. PO2 of 63, pCO2 of 25, pH of 7.63. Renal function shows creatinine is 1.16. His bicarb is 27, potassium 3.5 . Status post cardiopulmonary arrest and severe anoxic injury. Baseline echocardiogram done by Cardiology shows EF is 20%. Global hypokinesis. IMPRESSION: Status post cardiac arrest, congestive heart failure, anoxic injury, azotemia. PLAN: EEG is being ordered. Discuss with family as they arrive. Prognosis is guarded. One-half hour of critical time. Job ID: [id number]
[2019-08-14] MEDS ORDERED: Enoxaparin Sodium 30 MG/0.3 ML SYRINGE SC SCH (09:00)
--- NOTE | 2019-08-14 11:33 | PRG ---
DATE OF SERVICE: 08/14/2019 SERVICE: Nephrology. SUBJECTIVE: An 84-year-old male, admitted after out of hospital cardiac arrest, status post therapeutic hypothermia. Nephrology is following patient for acute kidney injury management. The patient since rewarming has been unresponsive both to noxious stimulus and verbal stimulus. OBJECTIVE: Note that the patient was started on dopamine for bradycardia. VITAL SIGNS: Temperature 97.7, pulse 82, respiratory rate 10, SpO2 of 97%, and blood pressure is 105/60. GENERAL: Unresponsive, elderly male, in no obvious distress. Afebrile. Anicteric. Acyanotic. HEENT: Normocephalic, atraumatic. ET and NG tubes are in place. CARDIOVASCULAR: Regular rhythm and rate with normal heart sounds 1 and 2. RESPIRATORY: Fair air entry bilateral with ventilator transmitted breath sounds. GI: Full, soft, nontender, nondistended with normal bowel sounds. UROGENITAL: Chaudhry catheter is in place draining clear urine. EXTREMITIES: Grossly normal looking, atraumatic with no edema or erythema. 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 The patient is comatose. Has been off sedative. GCS is 3/15. DIAGNOSTIC DATA: CBC showed WBC count of 8.6, hemoglobin of 8.9, MCV of 84.7, platelets of 171. Arterial blood gas earlier today showed pH of 7.63, pCO2 of 25, pO2 of 63.4. CMP showed sodium 145, potassium 3.5, chloride 109, CO2 of 27, BUN 16, creatinine 1.16, glucose 161, calcium 7.0, total bilirubin 0.4, AST 134, ALT 66, alkaline phosphatase 58, total protein 5.2, albumin 2.6, globulin 2.6. ASSESSMENT: 1. Acute kidney injury due to hemodynamic factors related to cardiac arrest. Creatinine has improved from admission level of 1.43 to 1.16. 2. Abnormal liver function tests: Related to cardiac arrest. 3. Unresponsiveness: Concerning for anoxic brain injury. 4. Acute respiratory failure with hypoxia, on ventilator. 5. Pulseless electrical activity arrest of unclear etiology. 6. Traumatic right-sided pneumothorax, status post chest tube placement. PLAN: 1. Continue supportive care. 2. Hypokalemia. Replete as needed. 3. Since renal function has improved, there is no acute Nephrology pathology at this time. However, the patient's problem seems to be that of acute metabolic encephalopathy, which may be anoxic in etiology. We will follow in the periphery. Please call for any clarification or questions. Palliative Care consult has been requested and they are following the patient and relatives. Close observation and neuro checks are recommended as well as Neurology consult. Job ID: [id number]
--- NOTE | 2019-08-14 12:35 | PRG ---
DATE OF SERVICE: 08/14/2019 Gildardo Kwon remains in the ICU, intubated on the vent. He is no longer assisting the respirator, which is set at 10. When it dropped to rate of 8 he was still not assisting the respirator. His pulse is 80, blood pressure 110/80, saturations are 96%. His has arrived today. They apparently live in [place]. There are some additional family members arrived from out of town. we are inprocess of trying to get Neurology to see his EEG, etc. and consult I have discussed with the at length that his prognosis is grave. We are going to give up to 72 hours to see whether he awakens. In the meantime, we have made him a DNR. She is agreeable to that. Comfort care. ANOXIC INJURY ///S/P CARDIAC ARREST. Job ID: [id number] MTDD
--- NOTE | 2019-08-14 13:13 | PDOC.CPN ---
- Subjective Date: 08/14/19 Time: 13:10 Interval history: Remains intubated, off sedation, unresponsive. - Review of Systems ROS unobtainable: due to endotracheal tube - Objective Allergies/Adverse Reactions: Allergies Allergy/AdvReac Type Severity Reaction Status Date / Time No Allergy Information Allergy Unverified 08/12/19 20:44 Available Visit Medications: Current Medications Acetaminophen (Tylenol) 650 mg WI Q6H PRN PRN Reason: Fever > 101 or Mild Pain Aspirin (Aspirin) 300 mg WI DAILY [facility] Last Admin: 08/14/19 08:14 Dose: 300 mg Dextrose/Water (Dextrose 50%) 25 gm SLOW IVP PRN PRN PRN Reason: Hypoglycemia Glucagon (Glucagon) 1 mg IM PRN PRN PRN Reason: Hypoglycemia Ceftriaxone Sodium 1 gm/ (Sodium Chloride) 100 mls @ 200 mls/hr IVPB Q24HR [facility] Last Admin: 08/14/19 00:04 Dose: 100 mls Norepinephrine Bitartrate 8 mg (/ Dextrose/Water) 250 mls @ 0 mls/hr IVPB PRN PRN; Protocol PRN Reason: To maintain MAP > 65 Last Admin: 08/13/19 01:04 Dose: 250 mls Dextrose/Water (D5w) 1,000 mls @ 0 mls/hr IV .Q0M PRN PRN Reason: Hypoglycemia Potassium Chloride 40 meq/ (Sodium Chloride) 270 mls @ 135 mls/hr IVPB ASDIR PRN PRN Reason: FOR SERUM K+ 2.5 - 3.5 Potassium Chloride 40 meq/ (Device) 100 mls @ 50 mls/hr IVPB ASDIR PRN PRN Reason: FOR SERUM K+ 2.5 - 3.5 Last Admin: 08/14/19 08:13 Dose: 100 mls Magnesium Sulfate 1 gm/ Sodium (Chloride) 102 mls @ 102 mls/hr IV PRN PRN PRN Reason: MAG LEVEL 1.4 - 2.0 Magnesium Sulfate 2 gm/ Device 50 mls @ 50 mls/hr IVPB ASDIR PRN PRN Reason: MAGNESIUM < 1.4 Potassium Phosphate 9 mmol/ (Sodium Chloride) 103 mls @ 25.75 mls/hr IVPB ASDIR PRN PRN Reason: Phosphate 1.0-1.8 Potassium Phosphate 12 mmol/ (Sodium Chloride) 254 mls @ 63.5 mls/hr IV ASDIR PRN PRN Reason: Serum phosphate 0.5-0.9 Potassium Phosphate 15 mmol/ (Sodium Chloride) 255 mls @ 63.75 mls/hr IV ASDIR PRN PRN Reason: Serum Phos < 0.5 Dopamine HCl/Dextrose (Dopamine 400 Mg/D5w 250 Ml) 250 mls @ 0 mls/hr IVPB INF ELEANOR; Protocol Sodium Chloride (Normal Saline 0.9%) 1,000 mls @ 70 mls/hr IV .[id number] [facility] Last Admin: 08/14/19 08:27 Dose: 1,000 mls Insulin Human Lispro (Humalog) 0 units SC .MILD SLIDING SCALE PRN PRN Reason: Mild Correctional Scale Last Admin: 08/14/19 05:03 Dose: 2 unit Magnesium Oxide (Magnesium Oxide) 400 mg PO BIDPRN PRN PRN Reason: FOR SERUM MAG 1.4 - 2.0 Magnesium Oxide (Magnesium Oxide) 800 mg PO PRN PRN PRN Reason: FOR SERUM MAG < 1.4 Miscellaneous Medication (Ccu Electrolyte Replacement) 1 each IVPB ONE [facility] Stop: 09/12/19 23:30 Miscellaneous Medication (Phos-Nak) 1 pkt PO TIDPRN PRN PRN Reason: FOR PHOS LEVEL 1.0 - 1.8 Miscellaneous Medication (Phos-Nak) 2 pkt PO TIDPRN PRN PRN Reason: FOR PHOS LEVEL 0.5 - 1.0 Ccu Electrolyte (Replacement Protocol) 0 each FS PRN PRN PRN Reason: FOR ELECTROLYTE REPLACEMENT Pantoprazole Sodium (Protonix) 40 mg IVP Q12HR [facility] Last Admin: 08/14/19 08:13 Dose: 40 mg Potassium Chloride (K-Dur) 40 meq PO ASDIR PRN PRN Reason: FOR SERUM K+ 2.5 - 3.5 Potassium Chloride (Klor-Con) 40 meq PER TUBE ASDIR PRN PRN Reason: FOR SERUM K+ 2.5-3.5 Sodium Chloride (Normal Saline Pf) 10 ml FS PRN PRN PRN Reason: RECONSTITUTION Last Admin: 08/13/19 21:23 Dose: 10 ml Sodium Chloride (Flush - Normal Saline) 10 ml IVF Q12HR [facility] Last Admin: 08/14/19 08:15 Dose: 10 ml Sodium Chloride (Flush - Normal Saline) 10 ml IVF PRN PRN PRN Reason: Saline Flush Sterile Water (Water For Injection) 10 ml IVP Q30MIN PRN PRN Reason: NEEDED FOR RECONSTITUTION Vital Signs & Weight: Vital Signs Temp Pulse Resp BP Pulse Ox 08/14/19 12:00 10 L 08/14/19 10:52 82 105/60 08/14/19 10:00 97.7 F 10 L 08/14/19 08:00 10 L 96 08/14/19 07:07 94 105/53 L 08/14/19 06:00 14 08/14/19 04:00 14 08/14/19 02:18 100 08/14/19 02:00 14 Admit Weight 128 lb 1.417 oz Weight 123 lb 7.342 oz - Physical Exam General: negative: other (Ibntubated.) HEENT: normocephaly Neck: midline trachea Cardiac: regular rate and rhythm Lungs: bibasilar rales Neuro: other (Unresponsive, pupils dilated not responsive.) Abdomen: active bowel sounds Extremities: no edema Skin: clear Musculoskeletal: no pain - Labs Result Diagrams: 08/14/19 05:04 08/14/19 05:04 Troponin/CKMB Troponin I 4.620 ng/mL (< 0.028) H* 08/13/19 21:20 - Telemetry Sinus rhythms and dysrhythmias: sinus rhythm - Assessment/Plan Assessment/Plan: 1. Out of hospital cardiac arrest 2. PEA arrest 3. Severe dilated cardiomyopathy EF at 10-15% 4. Anoxic brain injury 5. NSTEMI PLAN: - Continue supportive care. - I spoke with his about possibly doing a LHC and she is not wanting anything done until his daughter arrives from [place], they feel he needs to wake up before anything invasive is done which I think is very reasonable. - CT head done yesterday due to sudden onset of bradycardia and change in his pupils suggestive or herniation, no bleed was seen but edema is present. - Severely ill and would not be unexpected. - Critical Care Time Critical care time (mins): 30
--- NOTE | 2019-08-14 13:59 | PDOC.HOSPP ---
- Subjective Encounter Date: 08/14/19 Encounter Time: 10:15 Subjective: pt is off sedation, unresponsive, on dopamine drip as he had fanny eppisode - Objective Vital Signs & Weight: Vital Signs (12 hours) Temp Pulse Resp BP Pulse Ox 08/14/19 12:00 10 L 08/14/19 10:52 82 105/60 08/14/19 10:00 97.7 F 10 L 08/14/19 08:00 10 L 96 08/14/19 07:07 94 105/53 L 08/14/19 06:00 14 08/14/19 04:00 14 08/14/19 02:18 100 08/14/19 02:00 14 Weight Admit Weight 128 lb 1.417 oz Weight 123 lb 7.342 oz Most Recent Monitor Data Heart Rate from ECG 86 NIBP 94/55 NIBP BP-Mean 68 Respiration from ECG 0 SpO2 96 I&O: 08/13/19 08/14/19 08/15/19 06:59 06:59 06:59 Intake Total 1605 100 Output Total 352 1520 1785 Balance -352 85 -1685 Result Diagrams: 08/14/19 05:04 08/14/19 05:04 Additional Labs: Accuchecks 08/14/19 08/14/19 08/13/19 05:01 02:45 16:15 POC Glucose 168 H 220 H 162 H 08/13/19 06:05 POC Glucose 368 H Radiology Reviewed by me: Yes EKG Reviewed by me: Yes Hospitalist ROS - Review of Systems ROS unobtainable: due to mental status - Medication Medications: Active Medications Generic Name Dose Route Start Last Admin Trade Name Freq PRN Reason Stop Dose Admin Aspirin 300 mg 08/13/19 09:00 08/14/19 08:14 Aspirin CO 300 mg DAILY ELEANOR Administration Ceftriaxone Sodium 1 gm/ 100 mls @ 200 mls/hr 08/12/19 23:59 08/14/19 00:04 Sodium Chloride IVPB 100 mls Q24HR ELEANOR Administration Norepinephrine Bitartrate 8 mg 250 mls @ 0 mls/hr 08/12/19 23:29 08/13/19 01: 04 / Dextrose/Water IVPB 250 mls PRN PRN Administration To maintain MAP > 65 Protocol Titrate Potassium Chloride 40 meq/ 100 mls @ 50 mls/hr 08/13/19 00:17 12/05/19 08:13 Device IVPB 100 mls ASDIR PRN Administration FOR SERUM K+ 2.5 - 3.5 Sodium Chloride 1,000 mls @ 70 mls/hr 08/14/19 08:30 08/14/19 08:27 Normal Saline 0.9% IV 1,000 mls .[id number] ELEANOR Administration Insulin Human Lispro 0 units 08/12/19 23:57 08/14/19 05:03 Humalog SC 2 unit .MILD SLIDING SCALE PRN Administration Mild Correctional Scale Pantoprazole Sodium 40 mg 08/13/19 09:00 08/14/19 08:13 Protonix IVP 40 mg Q12HR ELEANOR Administration Sodium Chloride 10 ml 08/13/19 00:06 08/13/19 21:23 Normal Saline Pf FS 10 ml PRN PRN Administration RECONSTITUTION Sodium Chloride 10 ml 08/13/19 09:00 08/14/19 08:15 Flush - Normal Saline IVF 10 ml Q12HR ELEANOR Administration - Exam General - other findings: on ventilator, unresponsive Eye: PERRL, anicteric sclera ENT: normocephalic atraumatic Neck: supple Heart: RRR, no murmur Respiratory: CTAB, no wheezes Gastrointestinal: soft, non-distended Extremities: no edema Skin: normal turgor Neurological - other findings: unresponsive Hosp A/P (1) Cardiac arrest Code(s): I46.9 - CARDIAC ARREST, CAUSE UNSPECIFIED Status: Acute (2) Acute respiratory failure with hypoxia Code(s): J96.01 - ACUTE RESPIRATORY FAILURE WITH HYPOXIA Status: Acute (3) Anoxic brain injury Status: Acute (4) PEA (Pulseless electrical activity) Code(s): I46.9 - CARDIAC ARREST, CAUSE UNSPECIFIED Status: Acute (5) Cardiomyopathy Code(s): I42.9 - CARDIOMYOPATHY, UNSPECIFIED Status: Acute Qualifiers: Cardiomyopathy type: unspecified Qualified Code(s): I42.9 - Cardiomyopathy , unspecified (6) Diffuse cerebral edema Code(s): G93.6 - CEREBRAL EDEMA Status: Acute (7) Abnormal LFTs Code(s): R94.5 - ABNORMAL RESULTS OF LIVER FUNCTION STUDIES Status: Acute (8) Hypokalemia Code(s): E87.6 - HYPOKALEMIA Status: Acute (9) Hypophosphatemia Code(s): E83.39 - OTHER DISORDERS OF PHOSPHORUS METABOLISM Status: Acute (10) Respiratory alkalosis Code(s): E87.3 - ALKALOSIS Status: Acute (11) Anemia, normocytic normochromic Code(s): D64.9 - ANEMIA, UNSPECIFIED Status: Acute (12) Leucocytosis Code(s): D72.829 - ELEVATED WHITE BLOOD CELL COUNT, UNSPECIFIED Status: Acute (13) UTI (urinary tract infection) Status: Acute - Plan old records reviewed/req 08/14/19 continue dopapine EEG ordered family will arrive and make final decision about goal of care is not unexpected medication reviewed prognosis is very poor continue rocephin supportive care
[2019-08-14 14:19] VITALS: BP 96/59
[2019-08-14 18:03] VITALS: TEMP 97.4
--- NOTE | 2019-08-14 21:29 | EKG ---
Test Reason : PREOP Blood Pressure : / mmHG Vent. Rate : 070 BPM Atrial Rate : 070 BPM P-R Int : 130 ms QRS Dur : 122 ms QT Int : 544 ms P-R-T Axes : 065 074 091 degrees QTc Int : 587 ms Normal sinus rhythm Left ventricular hypertrophy with QRS widening and repolarization abnormality Cannot rule out Inferior infarct , age undetermined Anterior infarct , age undetermined Abnormal ECG No previous ECGs available Confirmed by Silvia FERRIS ([id number]) on 08/14/2019 9:28:45 PM Referred By: ANTWON Confirmed By:Silvia FERRIS
[2019-08-14] MEDS: Sodium Chloride 0.9% (PF) 10 ML VIAL FS PRN (22:03)
--- NOTE | 2019-08-14 23:30 | CON ---
DATE OF CONSULTATION: 08/14/2019 IMPRESSION: Anoxic encephalopathy with near brain findings. PLAN: Nuclear blood flow study. HISTORY OF PRESENT ILLNESS: Mr. Kwon is an 84-year-old man who is admitted with acute AR with cardiac arrest. He was put on the cooling protocol and re-warmed. He has failed to regain consciousness. He had an EEG done today which showed some intermittent minimal low amplitude brain activity. I was called to give a neurologic opinion. PAST MEDICAL HISTORY: As per chart. ALLERGIES: NONE REPORTED. SOCIAL HISTORY: Unknown. FAMILY HISTORY: Unknown. REVIEW OF SYSTEMS: Not obtainable. PHYSICAL EXAMINATION: VITAL SIGNS: Blood pressure 107/40, pulse 70, respirations 20. He is afebrile. HEENT: Pupils, nonreactive. Eyes are in mid position. No doll's head deviation was noted. No corneal response to stimulation. No spontaneous eye opening. No spontaneous respirations over the ventilator. No pain response to stimulation truncally. No spontaneous movements noted. SUMMARY: This elderly man appears to have a severe anoxic brain injury. He will likely be deemed brain based on the nuclear study. Job ID: [id number]
[2019-08-15] MEDS: Sodium Chloride 0.9% 1,000 ML IV SCH (00:30)
[2019-08-15] MEDS: cefTRIAXone\\ROCEPHIN 1 GM in Sodium Chloride 0.9% 100 ML IVPB SCH (00:50)
[2019-08-15 05:24] LABS: ALT (SGPT) 57 U/L (8-55); AST (SGOT) 78 U/L (5-34); Albumin 2.6 g/dL (3.4-4.8); Alkaline Phosphatase 63 U/L (40-110); Anion Gap 17 mmol/L (10-20); BUN (Urea Nitrogen) 15 mg/dL (8.4-25.7); Bilirubin, Total 0.5 mg/dL (0.2-1.2); Calc. Creatinine Clearance 32 mL/min (70-130); Calcium 7.7 mg/dL (7.8-10.44); Carbon Dioxide 22 mmol/L (23-31); Chloride 124 mmol/L (98-107); Estimated GFR-MDRD 47; Globulin 2.8 g/dL (2.4-3.5); Glucose 192 mg/dL (83-110); Potassium 3.5 mmol/L (3.5-5.1); Protein, Total 5.4 g/dL (5.8-8.1); Sodium 159 mmol/L (136-145)
[2019-08-15 05:28] LABS: Band 16 % (5-11); Eosinophils 1 % (0-10); Hemoglobin 8.4 g/dL (14.0-18.0); Lymphocytes 7 % (21-51); MDiff Complete? YES; Mean Corpuscular HGB CONC 32.3 g/dL (32.0-36.0); Mean Corpuscular Volume 86.5 fL (78.0-98.0); Mean Platelet Volume 10.3 fL (7.4-10.4); Monocytes 1 % (0-10); Neutrophil 75 % (42-75); Platelet Count 139 thou/uL (130-400); RBC Distribution Width 12.9 % (11.5-14.5); Red Blood Cell (RBC) Count 2.99 mill/uL (4.70-6.10); White Blood Cell (WBC) Count 10.8 thou/uL (4.8-10.8)
[2019-08-15] MEDS ORDERED: Sodium Chloride 0.9% 1,000 ML IV SCH (07:53)
--- NOTE | 2019-08-15 08:09 | PRG ---
DATE OF SERVICE: 08/15/2019 SUBJECTIVE: Intubated on the vent, no sedation. Chest tube in place. Small pneumothorax, left pleural effusion. Pupils are fixed and dilated. He was seen by Neurology yesterday. His respiratory rate is set at 9. He is not assisting the vent. OBJECTIVE: VITAL SIGNS: Pulse is 80, blood pressure 130/80, respiratory rate 8. It is noted that he is on dopamine drip. CHEST: Decreased breath sounds. No wheezing. CARDIAC: Normal S1 and S2. No gallops. ABDOMEN: No mass. LABORATORY DATA: Labs show sodium is elevated today to 159, creatinine is 1.43, and glucose 180. IMPRESSION: 1. Status post cardiopulmonary arrest, prolonged CPR, down time 45 minutes. 2. Right spontaneous pneumothorax. 3. History of hypertension. 4. Severe anoxic injury. A nuclear brain scan is being ordered today. If this is consistent with his present physical findings discontinue the vent. He is already a DNR. Comfort care in the meantime. I have discussed with family at length. One-half hour of critical care time. Job ID: [id number]
[2019-08-15] MEDS: Pantoprazole 40 MG VIAL IVP SCH (08:27)
[2019-08-15] MEDS: Aspirin 300 MG Suppository PR SCH (08:27)
--- NOTE | 2019-08-15 08:53 | RAD ---
CHEST 1 VIEW: HISTORY: Respiratory insufficiency. COMPARISON: 08/14/2019. FINDINGS: NG tube, endotracheal tube, and right central line is in place and stable. Abnormal pleural and pare nchymal opacity changes in the left base and retrocardiac region, evidence for pneumonia, atelectasis , and/or pleural effusion. Right-sided chest tube, the tip of which extends into the posterior right lower lobe. Small residual right-sided pneumothorax. IMPRESSION: Overall stable chest with numerous findings as above. Continue short-term followup. POS: TPC
--- NOTE | 2019-08-15 13:12 | DIS ---
DATE OF ADMISSION: 08/13/2019 DATE OF DISCHARGE: 08/15/2019 DATE OF : August 15, 2019 at 0911 hours. PRIMARY CAUSE OF : 1. Out of hospital cardiac arrest due to pulseless electrical activity. 2. Anoxic brain injury (anoxic encephalopathy). 3. Diffuse cerebral edema. 4. Type [address] elevation, cardiomyopathy. CONTRIBUTING DIAGNOSES: Abnormal electrolytes, normocytic normochromic anemia, urinary tract infection. PRIMARY PROCEDURE/OPERATION: Central line, endotracheal intubation. RADIOLOGICAL INVESTIGATION: CT brain, EEG, echocardiography. HOSPITAL COURSE: An 84-year-old male, who was admitted by Dr. Elisa Rivera. Please see her H and P for more detail. The patient had out of hospital cardiac arrest with pulseless electrical activity. The patient had successful resuscitation and the patient had respiratory failure and on ventilator. The patient also had significantly abnormal troponin consistent with type 2 myocardial infarction. He was hypotensive, required Levophed drip. He had multiorgan failure including anoxic brain injury, acute kidney injury, and abnormal LFT. Echocardiography showed EF 15% to 20%. He has diffuse cerebral slowing on EEG as well as diffuse cerebral edema. The patient was treated optimally with bicarbonate drip, Levophed drip. Family member was notified about the patient's hospital course and they decided to make him DNR and ultimately they decided to withdrawal of care because they do not want to continue bad quality of life on machine. Based on the patient's previous request and that is why the patient was extubated today and subsequently around 9:00 a.m., the patient was . was pronounced and body was released for . I have seen and examined the patient and was pronounced. Family member was reassured. Job ID: [id number]
--- NOTE | 2019-08-15 17:43 | EKG ---
Test Reason : Blood Pressure : / mmHG Vent. Rate : 046 BPM Atrial Rate : 046 BPM P-R Int : 146 ms QRS Dur : 102 ms QT Int : 708 ms P-R-T Axes : 073 071 094 degrees QTc Int : 619 ms Sinus bradycardia with Premature supraventricular complexes Voltage criteria for left ventricular hypertrophy ST elevation, consider early repolarization, pericarditis, or injury Nonspecific ST abnormality Prolonged QT Abnormal ECG When compared with ECG of 13-AUG-2019 07:17, Significant changes have occurred Confirmed by Silvia FERRIS ([id number]) on 08/15/2019 5:42:50 PM Referred By: ELEANOR Confirmed By:Silvia FERRIS
--- NOTE | 2019-08-18 07:59 | PQF ---
CHERELLE CASH SALIM NOORJIBHAI MD [id number] CLINICAL DOCUMENTATION CLARIFICATION FORM: POST DISCHARGE Addendum to original discharge summary date: ____ Late entry note date: __ DATE: 08/18/2019 ATTN:AMIRAH ODEN MD Please exercise your independent, professional judgment in responding to the clarification form. Clinical indicators are provided on the bottom of this form for your review Please check appropriate box(s) to determine sequence of events: [ ] Cardiac arrest due to Cardiomyopathy [ x ] Cardiac arrest due to Acute respiratory failure [ ] Cardiac arrest unspecified cause [ ] Other diagnosis [ ] Unable to determine For continuity of documentation, please document condition throughout progress notes and discharge summary. Thank You. CLINICAL INDICATORS - SIGNS / SYMPTOMS / LABS - Out of hospital cardiac arrest due to pulseless electrical activity-, 08/15 , AMIRAH ODEN MD - Anoxic brain injury( anoxic encephalopathy)-AMIRAH ODEN MD - Type 2 Myocardial infarction- DS, 08/15, AMIRAH ODEN MD - patient had respiratory failure and on ventilator - DS, 08/15, AMIRAH ODEN MD - Possible cardiac arrest sec to MO- H&P, 08/13, Miguel Pérez MD - Right side Pneumothorax- H&P, 08/13, Miguel Pérez MD - Acute hypoxic respiratory failure-, PEA, unclear, possible sec to may be hypoxia- H&P, 08/13, Miguel Pérez MD RISKS: - Multi organ failure- Anoxic brain damage, RUPAL- - DS, 08/15CECILLE SALIM NOORJIBHAI MD - UTI-- DS, 08/15CECILLE SALIM NOORJIBHAI MD - Cerebral edema-- DS, 08/15, AMIRAH ODEN MD TREATMENT: - Cardiology consult, 08/13 - CPR- ED record, Lety Rose MD - Mechanical ventilation-08/14 - Levophed.IV- NOV, 08/12 [employer] Clinical Resource Nurse [employer](This form is maintained as a part of the permanent medical record) 2014 [employer]. All Rights Reserved [employer] [not provided] [not provided] MTDD
--- NOTE | 2019-08-19 09:32 | EEG ---
Referring Physician: Lisbet HERCULES EEG # [id number] TEST TYPE: ROUTINE PORTABLE INPATIENT REPORT: AN EEG USING THE [employer]NATIONAL TEN-TWENTY SYSTEM OF ELECTRODE PLACEMENT WAS PERFORMED. The background activity is severely suppressed over both hemispheres. There is some intermittent, low amplitude, alpha appearing frequencies during the study. Photic stimulation was unremarkable. No epileptiform features are present. IMPRESSION: THIS IS AN ABNORMAL STUDY FOR THE FINDINGS OF SEVERE SUPPRESSION OF THE BACKGROUND WITH MINIMAL RESIDUAL CEREBRAL ACTIVITY. THIS DOES NOT QUITE MEET THE CRITERIA FOR CEREBRAL . CLINICAL CORRELATION IS INDICATED. Meat Soaker: MISAEL Research Associate Molecular Biology: EEG.MINAL DAMON
== END 2019-08-15 09:11 | disposition expired | DRG 208 ==
LOC: ERS 20:04 → CCU 08-13 00:03
PROVIDERS: ADMIT Internal Medicine; ATTEND Internal Medicine
PROC: 3E033XZ Introduction of Vasopressor into Peripheral Vein, Percutaneous Approach (ICD-10-PCS; principal; 2019-08-12)
PROC: 0W9930Z Drainage of Right Pleural Cavity with Drainage Device, Percutaneous Approach (ICD-10-PCS; 2019-08-12)
PROC: 4A023N7 Measurement of Cardiac Sampling and Pressure, Left Heart, Percutaneous Approach (ICD-10-PCS; 2019-08-12)
PROC: 0BH17EZ Insertion of Endotracheal Airway into Trachea, Via Natural or Artificial Opening (ICD-10-PCS; 2019-08-12)
PROC: 5A1945Z Respiratory Ventilation, 24-96 Consecutive Hours (ICD-10-PCS; 2019-08-12)
PROC: 5A12012 Performance of Cardiac Output, Single, Manual (ICD-10-PCS; 2019-08-13)
DX: J96.01 Acute respiratory failure with hypoxia (principal); G93.6 Cerebral edema; I21.A1 Myocardial infarction type 2; S22.31XA Fracture of one rib, right side, initial encounter for closed fracture; G93.1 Anoxic brain damage, not elsewhere classified; N39.0 Urinary tract infection, site not specified; N17.9 Acute kidney failure, unspecified; E87.2 Acidosis; K92.1 Melena; S27.0XXA Traumatic pneumothorax, initial encounter; I42.0 Dilated cardiomyopathy; E87.3 Alkalosis; J90 Pleural effusion, not elsewhere classified; I46.9 Cardiac arrest, cause unspecified; Z51.5 Encounter for palliative care; E78.5 Hyperlipidemia, unspecified; D64.9 Anemia, unspecified; I11.0 Hypertensive heart disease with heart failure; I95.9 Hypotension, unspecified; Z66 Do not resuscitate; E78.00 Pure hypercholesterolemia, unspecified; N40.0 Benign prostatic hyperplasia without lower urinary tract symptoms; E87.6 Hypokalemia; E83.39 Other disorders of phosphorus metabolism
CPT/HCPCS: 32551; 36415; 36416; 36556; 70450; 71045; 80053; 80306; 81001; 82247; 82550; 82805; 83605; 83690; 83735; 83880; 84100; 84443; 84450; 84460; 84484; 85025; 86850; 86900; 86901; 87040; 87077; 87086; 87149; 93005; 93010; 93306; 94002; 94003; 94760; 95816; 95819; 96365; 96366; 96372; 96375; 99292; C1769; C9113; J0171; J0456; J0461; J0696; J1265; J1644; J1650; J2704; J3010; J3475; J3480; J3490; J7050; J7070